=== PATIENT | male | born 1995 | race Caucasian/White ===

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

== ENCOUNTER 2017-04-09 20:32 | Emergency (ER) | payer SELFPAY ==
[~2017-04-09] VITALS: Ht 177.8 cm; Wt 67.6 kg
[2017-04-09] MEDS ORDERED: GI COCKTAIL 50ML BTL(HYOSCYAMINE/MAALOX/LIDOCAINE VISCOUS)(1:3:1) PO ONE (22:45)
[2017-04-09] MEDS ORDERED: SUCRALFATE SUSP 1GM/10ML UD PO ONE (22:45)
[2017-04-09 22:58] VITALS: BP 126/78
== END 2017-04-09 22:59 | disposition home or self-care (01) ==
LOC: M ED 20:32
DX: K21.9 Gastro-esophageal reflux disease without esophagitis (principal); R10.13 Epigastric pain; F17.200 Nicotine dependence, unspecified, uncomplicated

== ENCOUNTER 2018-01-27 17:10 | Emergency (ER) | payer SELFPAY | END 2018-01-27 18:09 | disposition home or self-care (01) | LOC: M ED 17:10 | DX: K02.9 Dental caries, unspecified (principal); Z87.891 Personal history of nicotine dependence | CPT/HCPCS: 99282 ==